=== PATIENT | female | born 1985 | race Caucasian/White ===

== ENCOUNTER 2018-06-05 23:04 | Emergency (ER) | payer SELFPAY ==
[~2018-06-05] VITALS: Ht 149.9 cm; Wt 86.4 kg
[2018-06-05 23:08] VITALS: Ht 149.9 cm; Wt 86.4 kg
[2018-06-05] MEDS ORDERED: BIRTH CONTROL (23:11)
[2018-06-05] MEDS ORDERED: CLEOCIN HCL300 MG PO (23:46)
[2018-06-05] MEDS ORDERED: VIBRAMYCIN 100100 MG PO (23:46)
[2018-06-05] MEDS ORDERED: ULTRAM50 MG PO (23:47)
[2018-06-06] VITALS: BP 137/80
== END 2018-06-05 23:59 | disposition home or self-care (01) ==
LOC: D.ER 23:04
DX: L73.2 Hidradenitis suppurativa (principal); F17.200 Nicotine dependence, unspecified, uncomplicated